=== PATIENT | female | born 1975 | race Caucasian/White ===

== ENCOUNTER 2017-06-07 21:39 | Emergency (ER) | payer OTHER ==
[~2017-06-07] VITALS: Ht 170.2 cm; Wt 105.2 kg
[~2017-06-07 21:39] MED LIST: ALBUTEROL INHAL17 GM; ALBUTEROL2.5 MG/3 M IH; ALBUTEROL2.5 MG/31; ATIVAN1 MG; DOXYCYCLINE 10100 MG PO; FLEXERIL PO; HYDROCODON-ACE1 EAC7 PO; IBUPROFEN 800800 M1 PO; IBUPROFEN 800800 MG PO; LISINOPRIL40 MG; LITHOBID; METFORMIN HCL500 MG; NORCO 5-325 TA1 EACH PO; PREDNISONE 20 M20 M1 PO; PRINIVIL20 MG; PROMETHAZINE-D120 ML PO; ROBAXIN500 MG PO; SEROQUEL 100 M100 MG; SEROQUEL200 MG; TESSALON200 MG PO; TRAMADOL 50 MG50 MG; TRAMADOL 50 MG50 MG PO; TRAZODONE HCL50 MG; VIBRAMYCIN 100100 M2 PO; XOPENEX0.63 MG/3; ZPAK PO
[2017-06-07] MEDS ORDERED: CHANTIX1 MG PO (21:48)
[2017-06-07 22:00] LABS: ABSOLUTE BASOPHILS 0.2 thou/uL (0.0-0.2); ABSOLUTE EOSINOPHILS 0.1 thou/uL (0.0-0.7); ABSOLUTE LYMPHOCYTES 3.7 thou/uL (0.8-5.3); ABSOLUTE MONOCYTES 0.6 thou/uL (0.0-1.2); ABSOLUTE NEUTROPHILS 8.3 thou/uL (1.6-8.1); BASOPHILS 1.3 %; HEMATOCRIT 36.6 % (37.0-47.0); HEMOGLOBIN 12.7 gm/dL (12.0-15.0); LYMPHOCYTES 28.9 %; MCH 30.1 pg (26.0-34.0); MCHC 34.8 g/dL (28.0-37.0); MCV 86.6 fL (80.0-100.0); MONOCYTES 4.5 %; MPV 8.1 fl. (7.2-11.1); NUCLEATED RBCS 0 /100WBC; PLATELET COUNT* 324 thou/uL (150-400); POLYS 64.3 %; RBC 4.23 mil/uL (4.20-5.00); RDW-CV 13.8 % (10.5-14.5); WBC 12.9 thou/uL (4.0-11.0)
[2017-06-07 22:08] LABS: ANION GAP 15 mmol/L (7-16); BUN 8 mg/dL (7-18); CALCIUM 8.5 mg/dL (8.5-10.1); CHLORIDE 102 mmol/L (98-107); CO2 20 mmol/L (21-32); CREATININE 0.7 mg/dL (0.6-1.3); GLUCOSE 161 mg/dL (70-99); POTASSIUM 3.6 mmol/L (3.5-5.1); SODIUM 137 mmol/L (136-145)
[2017-06-07 22:11] LABS: APTT 28.7 Seconds (25.0-31.3); PROTIME 9.5 Seconds (9.20-11.50)
[2017-06-07 22:31] LABS: ALBUMIN 3.5 g/dL (3.4-5.0); ALKALINE PHOSPHATASE 96 U/L (46-116); CK-MB MASS < 0.5 ng/mL (<0.5-3.6); LIPASE 149 U/L (73-393); MAGNESIUM 1.5 mg/dL (1.8-2.4); NT-PRO BRAIN NAT PEPTIDE 59 pg/mL (<300); TOTAL BILIRUBIN 0.4 mg/dL (<0.1-1.0); TROPONIN-I LEVEL <0.06 ng/mL (<0.06)
[2017-06-07 22:44] LABS: SGOT 15.6 U/L (15-37); SGPT 24 U/L (30-65); TOTAL PROTEIN 6.7 g/dL (6.4-8.2)
[2017-06-07 22:55] VITALS: BP 155/90
--- NOTE | 2017-06-08 15:24 | EKG ---
[place] [address] ELECTROCARDIOGRAM REPORT Name: ARMIN VALENTIN Room: [facility]#: [id number] Admission: 06/07/17 Attend Phys: Discharge: 06/07/17 Date of : 79 Report #: [id number] THIS REPORT FOR: //name// [facility] ED Test Date: 2017-06-07 Test Time: 21:45:38 Pat Name: ARMIN VALENTIN Department: Room: Gender: F Cardiac Cath Technician: QUYEN Darby : 1975 Requested By: Nino Doherty Order Number: [id number] MD: Lobito Abdul Measurements Intervals [place] Rate: 72 P: 58 W[place]: 182 QRS: 60 QRSD: 99 T: 8 QT: 416 QTc: 456 Interpretive Statements Sinus rhythm Anteroseptal infarct, age indeterminate, possible Baseline wander in lead(s) V5,V6 Compared to ECG 04/22/2008 15:42:32 No significant changes Electronically Signed On 06-08-2017 15:24:00 CDT by Lobito Abdul [email or web address] <ELECTRONICALLY SIGNED> By: Lobito Abdul MD, FACC 06/08/17 1524 2145 [id number] Lobito Abdul MD, FAC /EPI
== END 2017-06-07 22:57 | disposition home or self-care (01) ==
LOC: M.ERS 21:39
PROVIDERS: Family Medicine
DX: R07.89 Other chest pain (principal)

== ENCOUNTER 2021-04-03 00:36 | Emergency (ER) | payer OTHER ==
[~2021-04-03] VITALS: Ht 170.2 cm; Wt 96.6 kg
[~2021-04-03 00:36] MED LIST changes: +CHANTIX1 MG PO
[2021-04-03] MEDS ORDERED: TRULICITY (00:47)
[2021-04-03] MEDS ORDERED: [UNRECOGNIZED DRUG - REMARK] (00:48)
[2021-04-03] MEDS ORDERED: EMGALITY (00:48)
[2021-04-03] MEDS ORDERED: EMGALITY120 MG/1 M SUBQ (01:08)
[2021-04-03 01:45] VITALS: BP 159/82
== END 2021-04-03 01:45 | disposition home or self-care (01) ==
LOC: M.ERS 00:36
DX: G43.909 Migraine, unspecified, not intractable, without status migrainosus (principal); J45.909 Unspecified asthma, uncomplicated; F41.9 Anxiety disorder, unspecified; I10 Essential (primary) hypertension; F32.9 Major depressive disorder, single episode, unspecified; Z79.899 Other long term (current) drug therapy; Z91.041 Radiographic dye allergy status; Z88.0 Allergy status to penicillin